=== PATIENT | female | born 1965 | race Caucasian/White ===

== ENCOUNTER 2021-03-05 13:50 | Emergency (ER) | payer OTHER, SELFPAY ==
[2021-03-05 14:00] VITALS: BP 135/76; PULSE 110; RESP 16; TEMP 36.3; O2SAT 99
--- NOTE | 2021-03-05 14:18 | ED.URI ---
HPI - URI/Sore Throat General Chief Complaint: Upper Respiratory Infection Stated Complaint: sinus issues Source: patient and RN notes reviewed Limitations: no limitations History of Present Illness HPI Narrative: The vaccinated patient, a non-smoker/nondrinker retail jeweler, presents with cough and congestion. Patient states she has nearly 2-week history of yellow nasal discharge , slightly productive cough, scratchy sore throat . Symptoms are mild & persistant despite OTC preparations like NyQuil. No fever, earache, wheeze; no loss of taste/smell, CP, vomiting/diarrhea, S OB -she repeatedly declines Covid testing. Related Data Home Medications Medication Instructions Recorded Confirmed atorvastatin 03/05/21 omeprazole 03/05/21 Allergies Allergy/AdvReac Type Severity Reaction Status Date / Time No Known Allergies Allergy Verified 03/05/21 14:03 Review of Systems Review of Systems: General/Constitutional: No weight loss,fever Eyes: N0: Redness,discharge Ears/Nose/Throat: No: Epistaxis,ear discharge Respiratory: Denies: Hemoptysis Gastrointestinal: No Vomiting, Bleeding-rectal Skin: No Lumps, eruption Neurologic: No Focal Weakness,Sz Hematologic: Denies: Petechiae/Purpura Psychiatric: No: Suicida ideationl All Other Systems: Reviewed and Negative PMFSH Comments At time of signature, agree with nursing past medical, surgical, social and family history. There is no relevant family history pertinent to the presenting complaint Exam Narrative: General Appearance: Well appearing, overweight/well nourished EYE: PERRLA, Conjunctiva clear Ears: Auditory canal normal, TM normal Nose: Rhinorrhea, Mucousal erythema Mouth/Throat: MM moist, Uvula midline, Pharyngeal erythema Neck: Supple, No adenopathy Respiratory: No respiratory distress, distant BS equal, Clear to auscultation Cardiovascular: RRR, No JVD Musculoskeletal: Non tender, Normal strength Skin: Warm, Dry Neurological: A&O x3, CN II-XII intact Psychiatric: Normal mood, Normal affect Course Vital Signs Vital signs: Vital Signs Temperature 97.4 F L 03/05/21 14:00 Pulse Rate 110 H 03/05/21 14:00 Respiratory Rate 16 03/05/21 14:00 Blood Pressure 135/76 03/05/21 14:00 Pulse Oximetry 99 03/05/21 14:00 Temperature 97.4 F L 03/05/21 14:00 Pulse Rate 110 H 03/05/21 14:00 Respiratory Rate 16 03/05/21 14:00 Blood Pressure 135/76 03/05/21 14:00 Pulse Oximetry 99 03/05/21 14:00 Discharge Plan Discharge Clinical Impression: Sinusitis Patient Disposition: Home, Self-Care Condition: Stable Instructions: Antibiotic Form, Rhinosinusitis (ED) Prescriptions: New azithromycin 250 mg tablet See Rx Instructions .ROUTE .COMPLEX Qty: 6 RF: 0 prednisone 20 mg tablet 60 mg PO DAILY Qty: 9 RF: 0 benzonatate 100 mg capsule 100 mg PO TID PRN (Reason: cough) Qty: 20 RF: 2 azelastine 137 mcg (0.1 %) aerosol,spray 137 mcg NASAL Q12H Qty: 30 RF: 0 No Action atorvastatin 10 mg tablet RF: 0 omeprazole 40 mg capsule,delayed release(DR/EC) RF: 0 Follow-up/Referrals: UNKNOWN,DOCTOR [Primary Care Provider] -
--- NOTE | 2021-03-05 14:21 | PC.NURSE ---
Pt offered PCR covid test, pt refused.
== END 2021-03-05 14:37 | disposition home or self-care (01) ==
PROVIDERS: Emergency Provider Emergency Medicine
DX: J32.9 Chronic sinusitis, unspecified (principal)
CPT/HCPCS: 99213; G0463

== ENCOUNTER 2021-03-11 10:07 | Emergency (ER) | payer OTHER, SELFPAY ==
--- NOTE | ~2021-03-11 | CT_ITS ---
EXAMINATION: CT brain wo con DATE: 03/11/2021 11:45 INDICATION: Dizziness TECHNIQUE: Computed tomography (CT) of the head was performed without intravenous contrast. The mA wa s adjusted according to patient size. Iterative reconstruction technique was employed. Exam dose: 60 5.33 mGy-cm total exam DLP. COMPARISON: None FINDINGS: No intracranial mass lesion or hemorrhage or cerebrovascular accident. No midline shift or mass effect. Normal ventricular size. No subdural or epidural hematoma is detected. No orbital mass lesion. The included paranasal sinuses and mastoid air cells are unremarkable. No fracture or bone destruction of the cranial vault. IMPRESSION: No significant abnormality Reviewed, dictated and finalized at [facility]. Reviewed, dictated and finalized at [facility]. SALES REPRESENTATIVE IMPRESSION: No significant abnormality
--- NOTE | ~2021-03-11 | XR_ITS ---
XR chest 1V portable DATE: 03/11/2021 11:27 INDICATION: Cough TECHNIQUE: Portable upright AP chest on 03/11/2021 1122 hours COMPARISON: None FINDINGS: Normal heart size. No hilar or mediastinal enlargement. No pulmonary infiltrate or consolid ation, pleural effusion or pulmonary vascular congestion or pneumothorax. Included skeletal structures are unremarkable except for osteopenia. IMPRESSION: No active cardiopulmonary disease Reviewed, dictated and finalized at [facility]. R MILL SUPERVISOR
[2021-03-11 10:12] VITALS: BP 135/77; PULSE 117; RESP 20; TEMP 36.6; O2SAT 96
--- NOTE | 2021-03-11 10:29 | ECG_ITS ---
Measurements Intervals [place] Rate: 101 P: 75 IL: 165 QRS: 12 QRSD: 78 T: 15 QT: 319 QTc: 414 Interpretive Statements SINUS TACHYCARDIA BORDERLINE ECG Electronically Signed On 03-11-2021 16:54:44 [employer]ZARDOUS WASTE MANAGEMENT SPECIALIST by Scottie Hassan D.O.
[2021-03-11 10:35] LABS: Basophils Percent Auto 0.3 % (0.2-1.2); Hematocrit 41.9 % (37.0-47.0); Hemoglobin 14.2 g/dL (12.0-15.0); Immature Granulocyte Absolute 0.06 K/mm3 (0.00-0.031); Immature Granulocyte Percent A 0.7 % (0-0.5); Lymphocytes Absolute Auto 2.19 K/mm3 (0.9-3.2); Lymphocytes Percent Auto 24.6 % (18.3-44.2); Mean Corpuscular HGB Conc 33.9 g/dl (32-36); Mean Corpuscular Hemoglobin 31.2 pg (26-34); Mean Corpuscular Volume 92.1 fl (80-100); Mean Platelet Volume 8.8 fl (7.4-10.4); Monocytes Absolute Auto 0.4 K/mm3 (0.1-0.6); Monocytes Percent Auto 4.1 % (2.6-8.5); Neutrophils Absolute Auto 6.3 K/mm3 (1.3-6.7); Neutrophils Percent Auto 70.3 % (45.5-73.1); Platelet Count Result 385 k/mm3 (150-375); Red Blood Count 4.55 M/mm3 (4.2-5.4); Red Cell Distribution Width 11.8 % (11.5-14.5); White Blood Count 8.9 K/mm3 (4.5-10.0)
[2021-03-11 10:42] VITALS: BP 120/81; BP 122/72; BP 124/78; PULSE 108; PULSE 110; PULSE 114
[2021-03-11 10:52] LABS: Add Urine Microscopic? NO; Appearance Urine Clear (Clear); Bilirubin Urine Negative (Negative); Blood Urine Negative (Negative); Color Urine Colorless (Yellow); Glucose Urine UA Negative (Negative); Ketones Urine Negative (Negative); Leukocyte Esterase Ur Negative LEU/UL (Negative); Nitrate Urine Negative (Negative); Protein Urine Negative (Negative); Urobilinogen Urine Negative mg/dL (<2.0)
[2021-03-11 10:53] LABS: Alanine Aminotransferase 31 U/L (4-35); Albumin Level 4.6 g/dL (3.5-5.1); Alkaline Phosphatase 81 U/L (38-126); Anion Gap 8 mmol/L (8-16); Aspartate Amino Transferase 30 U/L (14-36); Bilirubin,Total 0.4 mg/dL (0.2-1.3); Blood Urea Nitrogen 17 mg/dL (7-17); Carbon Dioxide 25 mmol/L (22-30); Chloride 101 mmol/L (98-107); Estimated CRCL calculation 88 ml/min; Estimated Glomerular Filt Rate > 60; Glucose 123 mg/dL (65-110); Potassium 3.3 mmol/L (3.4-5.0); Sodium 134 mmol/L (137-145)
[2021-03-11 10:53] LABS: Specific Grav Ur 1.003 (1.001-1.035)
[2021-03-11 11:24] LABS: Lipase 139 U/L (23-300)
--- NOTE | 2021-03-11 11:32 | ED.DIZZY ---
HPI - Dizziness General Chief Complaint: Dizziness Stated Complaint: dizziness Time Seen by Provider: 03/11/21 11:03 Source: RN notes reviewed History of Present Illness HPI Narrative: Patient presents emergency department from home for dizziness. Patient states she has been having intermittent dizziness over the past 2 days states that symptoms are worse when she got up and ambulated and better with resting. She states that approximately 5 days ago she was having sinus symptoms and had gone to urgent care and diagnosed with a sinus infection states she had been having some rhinorrhea and nasal congestion at that time she been started on steroids and a Z-Charlie she states she finished a Z-Charlie but after several days of taking the steroids is making her feel jittery and she stopped them she she has been having some intermittent nausea with the symptoms she denies any fevers or chills unilateral numbness or weakness chest pain shortness of breath abdominal pain or vomiting states she has vaccinated for COVID-19 states that several other people at her work have been sick but they did have negative Covid test Related Data Home Medications Medication Instructions Recorded Confirmed atorvastatin 10 mg PO DAILY 03/05/21 omeprazole 40 mg PO DAILY 03/05/21 Allergies Allergy/AdvReac Type Severity Reaction Status Date / Time No Known Allergies Allergy Verified 03/05/21 14:03 Review of Systems Review of Systems: Gen.: Denies fevers or chills Eyes: Denies eye pain or visual change ENT: Reports nasal congestion Respiratory: Denies shortness of breath or cough CV: Denies chest pain or palpitations GI: Denies abdominal pain nausea, emesis or diarrhea Musculoskeletal: Denies back pain or muscle pain Neuro: Reports dizziness Skin: Denies rash Except as documented, all other systems reviewed and negative [facility] Past Medical History Medical History (Updated 03/11/21 @ 15:23 by Beto Alvarado DO) Hypercholesterolemia Social History Social History (Updated 03/11/21 @ 15:20 by Beto Alvarado DO) Smoking status: Never smoker Exam Narrative: APPEARANCE: No acute distress, nontoxic, resting in bed EYES: EOMI HEENT: Normocephalic, atraumatic, TMs clear bilaterally nares patent or mucosa moist erythema exudate posterior pharynx RESPIRATORY: No respiratory distress Clear to auscultation bilaterally with no rhonchi wheezing or rales. CARDIOVASCULAR: Regular rate and rhythm without murmurs rubs or gallops. ABDOMINAL: Soft, nontender, nondistended, no rebound or guarding MUSCULOSKELETAl: Moves all extremities. No clubbing, cyanosis or edema. NEURO: Awake and alert x 4 Following commands, speech normal, no focal deficits SKIN:: Warm, dry. No rashes lesions or abrasions PSYCHIATRIC: Normal affect/mood, Course Course Emergency Course: Patient with orthostatic tachycardia given 2 L of fluids with improvement patient will get up and ambulate in ED with no difficulty states she is feeling better will discharge at this time with patient having several coworkers have been ill I will test for Covid Discussed with patient results of workup and diagnosis. Discussed need for follow-up with primary care, proper use of medication, and reasons to return to the emergency department. Patient understands and agrees to current treatment plan Vital Signs Vital signs: Vital Signs Temperature 97.9 F 03/11/21 10:12 Pulse Rate 117 H 03/11/21 10:12 Respiratory Rate 20 03/11/21 10:12 Blood Pressure 135/77 03/11/21 10:12 Pulse Oximetry 96 03/11/21 10:12 Temperature 97.9 F 03/11/21 10:12 Pulse Rate 100 03/11/21 14:21 Respiratory Rate 20 03/11/21 10:12 Blood Pressure 136/76 03/11/21 14:21 Pulse Oximetry 96 03/11/21 10:12 MDM - Dizziness Lab Data Result diagrams: 03/11/21 10:30 03/11/21 10:30 Labs: Lab Results 03/11/21 03/11/21 03/11/21 Range/Units 10:30 10:30 10:30 WBC 8.9 (
[2021-03-11] MEDS: SODIUM CHLORIDE 0.9% IV 1,000 ML 999 ML IV CONT ×2 (11:33→13:20)
[2021-03-11 11:37] LABS: Troponin I < 0.012 ng/mL (0.000-0.034)
[2021-03-11 13:02] LABS: D Dimer < 0.22 ug/mL (<0.48)
[2021-03-11 13:07] VITALS: BP 122/68; PULSE 94
[2021-03-11 13:08] VITALS: BP 120/81; PULSE 106
[2021-03-11 14:21] VITALS: BP 133/76; BP 136/76; PULSE 100; PULSE 93
[2021-03-11 15:35] VITALS: PULSE 90; RESP 18; O2SAT 98
[2021-03-12 19:18] LABS: SARS-CoV-2 RNA PCR Negative
== END 2021-03-11 15:37 | disposition home or self-care (01) ==
PROVIDERS: General Practice; Emergency Provider Emergency Medicine
DX: R42 Dizziness and giddiness (principal); J06.9 Acute upper respiratory infection, unspecified; Z20.822 Contact with and (suspected) exposure to COVID-19; E78.00 Pure hypercholesterolemia, unspecified; R00.0 Tachycardia, unspecified
CPT/HCPCS: 36415; 70450; 71045; 80053; 81003; 81025; 83690; 84484; 85025; 85380; 93005; 96360; 96361; 99284; C9803; J7030; U0003; U0005

== ENCOUNTER 2021-12-11 10:20 | Emergency (ER) | payer OTHER, SELFPAY ==
[2021-12-11 10:40] VITALS: BP 113/68; PULSE 93; RESP 16; TEMP 36.9; O2SAT 98
--- NOTE | 2021-12-11 10:45 | ED.FEMALEGU ---
HPI - Female Genitourinary General Chief complaint: Urogenital-Female Stated complaint: UTI SYMPTOMS Time Seen by Provider: 12/11/21 10:45 Source: patient, RN notes reviewed and old records reviewed Mode of arrival: ambulatory Limitations: no limitations History of Present Illness HPI Narrative: 55-year-old female presents to the [facility] with complaints of urinary symptoms. For 1 week has had lower back pain, frequency, urgency and burning. Denies any fever, chills. No abdominal pain. No nausea vomiting or diarrhea. Related Data Home Medications Medication Instructions Recorded Confirmed atorvastatin 10 mg tablet 10 mg PO DAILY 03/05/21 12/11/21 famotidine 40 mg tablet 40 mg PO DAILY 12/11/21 12/11/21 mirtazapine 30 mg tablet 30 mg PO DAILY 12/11/21 12/11/21 Allergies Allergy/AdvReac Type Severity Reaction Status Date / Time No Known Allergies Allergy Verified 12/11/21 10:36 Review of Systems Review of Systems: All systems reviewed & are unremarkable except as noted in HPI and below Constitutional: Constitutional: Reports no additional constitutional complaints, Denies chills and Denies fatigue Eyes: Eyes: Reports no additional eye complaints ENT: Reports system reviewed and no additional complaints, except as documented Cardiovascular: Cardiovascular: Reports no additional cardiovascular complaints Respiratory: Respiratory: Reports no additional respiratory complaints Gastrointestinal: Gastrointestinal: Reports no additional gastrointestinal complaints, Denies abdominal pain, Denies diarrhea, Denies nausea and Denies vomiting Genitourinary: Genitourinary: Reports as per HPI, Reports hematuria, Reports dysuria, Denies flank pain and Denies vaginal discharge Musculoskeletal: Musculoskeletal: Reports no additional musculoskeletal complaints and Denies back pain Integumentary/Breasts: Skin/Breast: Reports system reviewed and no additional complaints, except as docu Neurologic: Reports system reviewed and no additional complaints, except as documented Psychiatric: Psychiatric: Reports no additional psychiatric complaints Endocrine: Endocrine: Denies fatigue Allergic/Immunologic: Allergic/Immunologic: Reports no additional allergic/immunologic complaints PMFSH Past Medical History Medical History Hypercholesterolemia Social History Social History Smoking status: Never smoker Comments At the time of my signature, I reviewed and agree with the nursing past medical, surgical, social, and family history. There is no relevant family history pertinent to the patient complaint. Exam Const: General: healthy appearing, no acute distress and alert Nutritional Appearance: well nourished Orientation/consciousness: patient oriented x3 Limitations: no limitations HENMT: Head: normal to inspection Ears: external ears normal General nose exam: Normal external nose present and Normal nares present Face and sinus: normal facial exam Mouth: Yes Normal oral and palatal mucosa present, Yes lip normal and Yes moist mucous membranes Eyes: Conjunctivae: conjunctivae normal Pupils: Equal, round and reactive pupils present Neck: Neck: normal visual inspection, no lymphadenopathy and no meningeal signs Chest: Chest palpation & inspection: normal inspection of the chest and abnormal inspection of the chest Resp: Effort & Inspection: normal respiratory effort Auscultation: clear to auscultation bilaterally Cardio: Rate: regular rate Rhythm: regular rhythm GI: GI Palp: Yes Soft to palpation and No Tenderness to palpation present (GI) : General: Yes no CVA tenderness Back/Spine/Pelvis: Back: no CVA tenderness Skin: General skin exam: normal color Rashes: no rashes Wounds: no wounds Neuro: General: patient oriented x3, moves all extremities, no meningeal signs and no focal motor deficits Cran
== END 2021-12-11 11:01 | disposition home or self-care (01) ==
PROVIDERS: Emergency Provider Nurse Practitioner
DX: N30.01 Acute cystitis with hematuria (principal); E78.00 Pure hypercholesterolemia, unspecified
CPT/HCPCS: 81003; 87077; 87086; 87088; 99213; G0463